=== PATIENT | male | born 1995 | race African-American/Black ===

== ENCOUNTER 2019-06-04 04:13 | Emergency (ER) | payer SELFPAY ==
[~2019-06-04] VITALS: Ht 172.7 cm; Wt 76.0 kg
[2019-06-04] MEDS ORDERED: MORPHINE SULFATE 2 MG/ML CPJ (NOT FOR IM USE) IV ONE (04:26)
[2019-06-04] MEDS ORDERED: ONDANSETRON HCL 4MG/2ML INJ ONE (04:26)
[2019-06-04] MEDS ORDERED: MORPHINE SULFATE 4 MG/ML CPJ (NOT FOR IM USE) IV STA (04:27)
[2019-06-04] MEDS ORDERED: SODIUM CHLORIDE 0.9% 1,000 ML IV ONE (04:27)
[2019-06-04] MEDS ORDERED: ONDANSETRON HCL 4MG/2ML INJ IV STA (04:27)
[2019-06-04] MEDS ORDERED: TETANUS, DIPHTHERIA, PERTUSSIS VAC/PF 0.5ML (>7YR OLD) IM ONE (04:30)
[2019-06-04] MEDS ORDERED: CEFAZOLIN 1000MG PREMIX 50 ML IV ONE (04:30)
[2019-06-04 04:42] LABS: BASOPHILS % 0.5 % (0.0-2.0); EOSINOPHILS % 4.3 % (0.0-5.0); HEMATOCRIT. 40.7 % (42.0-52.0); HEMOGLOBIN. 13.4 g/dL (14.0-18.0); LYMPHOCYTES % 58.1 % (20.0-50.0); MEAN CORPUSCULAR HEMOGLOBIN 29.3 pg (28.0-32.0); MEAN CORPUSCULAR VOLUME 89.2 fL (80.0-94.0); MEAN PLATELET VOLUME 8.9 fl (7.4-10.4); MONOCYTES % 7.2 % (2.0-8.0); NEUTROPHILS % 29.9 % (40.0-76.0); PLATELET 238 x1000/uL (130-400); RED BLOOD CELL COUNT 4.56 mill/uL (4.7-6.1); RED CELL DISTRIBUTION WIDTH 13.1 % (11.6-14.6)
[2019-06-04 04:49] LABS: CHLORIDE 107 mEq/L (98-107)
[2019-06-04] MEDS ORDERED: MORPHINE SULFATE 10 MG/ML CPJ ONE (04:52)
[2019-06-04 04:59] VITALS: BP 127/82
[2019-06-04] MEDS ORDERED: MORPHINE SULFATE 4 MG/ML CPJ (NOT FOR IM USE) IV ONE (05:00)
[2019-06-04 05:09] LABS: PARTIAL THROMBOPLASTIN TIME 23.6 sec (23.4-31.0); PROTHROMBIN TIME 10.5 sec (9.6-11.0)
== END 2019-06-04 04:52 | disposition short-term general hospital (02) ==
LOC: ER 04:13
DX: S31.100A Unspecified open wound of abdominal wall, right upper quadrant without penetration into peritoneal cavity, initial encounter (principal); R94.5 Abnormal results of liver function studies; X93.XXXA Assault by handgun discharge, initial encounter; Y93.89 Activity, other specified; Y92.488 Other paved roadways as the place of occurrence of the external cause
CPT/HCPCS: 36415; 71045; 80053; 83690; 84484; 85025; 85610; 85730; 86850; 86900; 86901; 86920; 90471; 90715; 96365; 96374; 96375; 99285; J0690; J2270; J2405; J7030; Z7610; P9016